=== PATIENT | female | born 1960 | race Caucasian/White ===

== ENCOUNTER → 2017-04-11 | Outpatient (CLI) | payer MEDICAID ==
[~2017-04-11] MED LIST: AMOXIL500 M1 PO; AUGMENTIN 500 M1 TAB PO; MEDROL 4MG. DOSE4 MG PO; [UNRECOGNIZED DRUG - OTHER] PO
--- NOTE | 2017-04-12 14:26 | RADIOLOGY REPORT PS360 ---
CT ABD PELVIS W/O CONTRAST CLINICAL INDICATION: Right kidney hydronephrosis HYDRONEPHROSIS ORDERING PHYSICIAN: BLAYNE COFFEY PATIENT AGE: 56 years COMPARISON: Ultrasound of 03/06/2017 TECHNIQUE: Axial images obtained with sagittal and coronal reformats. PROCEDURE: Oral Contrast: None IV Contrast: None . FINDINGS: Lower thorax: There are atelectatic versus fibrotic changes in the lung bases. The liver, spleen, adrenal glands, and pancreas have an unremarkable unenhanced CT appearance. There has been a prior cholecystectomy. No evidence of biliary dilatation. Scattered small lymph nodes are present in the mesentery's and in the retroperitoneum. Left kidney has been removed. Right kidney demonstrates hydronephrosis. There is dilatation of the calyces and renal pelvis and proximal right ureter. There is a ileal conduit exiting in the right lower quadrant. The mid aspect of the right ureter does not appear distended. The ureter at the anastomosis with the ileal conduit does not appear distended. Moderate amount retained colonic feces. No evidence of appendicitis or diverticulitis. There has been a prior hysterectomy. No evidence of small bowel obstruction. IMPRESSION: 1. Mild right hydronephrosis and proximal hydroureter. There is an ileal conduit in the right lower quadrant. The right ureter is fairly short. The ureter is not distended just proximal to the conduit but gradually distends in the mid and proximal aspect of the right ureter. A definite point of obstruction is not identified on this study however this is without contrast. Lasix renogram may be of further value to evaluate for any underlying obstruction if IV contrast cannot be utilized. 2. Prior left nephrectomy.
== END ==
LOC: RAD 13:26
DX: N13.30 Unspecified hydronephrosis (principal)

== ENCOUNTER → 2017-05-15 | Outpatient (CLI) | payer MEDICAID ==
[~2017-05-15] MED LIST changes: +FOSAMAX70 M1 PO; +GLIMEPIRIDE 2MG2 MG PO; +HYDROCHLOROTH12.5 M1 PO; +IRON325 M2 PO; +K-DUR 1010 MEQ PO; +LASIX 40MG. TAB40 MG PO; +LISINOPRIL40 MG PO; +METFORMIN 500M500 MG PO; +PRAVACHOL 20MG.20 MG PO
--- NOTE | 2017-05-16 06:43 | RADIOLOGY REPORT PS360 ---
LOOPOGRAM COMPARISON: Previous CT scan of 04/11/2017 HISTORY: Evaluate right hydronephrosis and ileal loop, Prior left nephrectomy and cystectomy. TECHNIQUE: There was some difficulty in accessing the loop with a very short segment only able to be catheterized. Initial attempt was made to catheterize with Childers catheter with attempted tamponade with the Childers balloon along the outside of the stoma. Catheter however could not be inserted deep enough without meeting resistance. 12 [place] red rubber catheter was then attempted but the contrast flowed back out along the proximal hole of the catheter outside of the stoma. 8 [place] pediatric feeding tube was then inserted and neck with the same problems. Contrast was then injected into the stoma with 60 cc syringe with adapter. There was some difficulty in opacifying the loop however, opacification was obtained. Contrast flowed retrograde into the right renal collecting system of the ureter into the right renal pelvis. FINDINGS: The ileal loop itself is short segment. There was free flow of contrast into the distal right ureter. There were segments of beading of the right ureter however this did not appear to result in stenosis proximally. No strictures were identified. The anastomosis with the ileal loop was widely patent. No obvious internal filling defects were evident within the ureter or kidney however the kidney was not well opacified there was moderate right hydronephrosis. IMPRESSION: 1. No obstructing lesions or strictures apparent involving the right kidney, ureter, or ileal loop or junction of the ureter with a loop. 2. Right hydronephrosis and hydroureter without obvious obstruction.
== END ==
LOC: RAD 12:49
DX: N13.2 Hydronephrosis with renal and ureteral calculous obstruction (principal)
CPT/HCPCS: Q9965

== ENCOUNTER → 2017-06-07 | Outpatient (CLI) | payer MEDICAID ==
[2017-06-07 08:04] LABS: HEMOGLOBIN 11.1 g/dL (12.2-16.2); LYMPH % 15.3 % (10-50.0)
[2017-06-07 10:26] LABS: BUN 44 mg/dL (7-18); GFR (ESTIMATED) 36 ML/MIN (59-)
== END ==
LOC: LAB 07:50
PROVIDERS: Internal Medicine
DX: E11.9 Type 2 diabetes mellitus without complications (principal); I10 Essential (primary) hypertension; G82.21 Paraplegia, complete; N18.3 Chronic kidney disease, stage 3 (moderate); E78.5 Hyperlipidemia, unspecified; D64.9 Anemia, unspecified

== ENCOUNTER → 2017-07-04 | Outpatient (CLI) | payer MEDICAID ==
--- NOTE | 2017-07-08 11:46 | RADIOLOGY REPORT PS360 ---
[facility] RENAL SCAN WITH CAPTOP/LAS CLINICAL INDICATION: Right hydronephrosis with ileal loop RT HYDRONEPHROSIS ORDERING PHYSICIAN: Robert Bonner MD PATIENT AGE: 57 years DOSE: 9.4 mCi technetium MAG3. 40 mg Lasix IV COMPARISON: CT scan of 04/11/2017 and loopogram of 05/15/2017 FINDINGS: There has been prior left nephrectomy. Recent CT scan demonstrates right hydronephrosis There is prompt right renal excretion. Increasing intense activity noted in the right kidney and right ureter.. 18 minutes into the exam 40 mg of Lasix was injected IV. There was mild downsloping of the renal curve following Lasix administration. This does not indicate obstruction but more of a patulous system. IMPRESSION: 1. No evidence of right renal obstruction 2. Mild downsloping of the renal curve following Lasix administration consistent with a patulous system
== END ==
LOC: RAD 06-27 13:00
DX: N13.30 Unspecified hydronephrosis (principal)
CPT/HCPCS: A9562